=== PATIENT | male | born 1945 | race African-American/Black ===

== ENCOUNTER 2016-12-10 15:43 | Outpatient (CLI) | payer MEDICARE ==
[2016-05-26 18:07] VITALS: BP 154/74
[2016-12-10 17:10] LABS: eGFR (African) 35; eGFR (Non-African) 29
== END 2016-12-10 15:44 ==
LOC: NEPHRO 15:43
PROVIDERS: ATTEND Internal Medicine Nephrology
DX: E11.22 Type 2 diabetes mellitus with diabetic chronic kidney disease (principal); I13.0 Hypertensive heart and chronic kidney disease with heart failure and stage 1 through stage 4 chronic kidney disease, or unspecified chronic kidney disease; N18.9 Chronic kidney disease, unspecified; I50.9 Heart failure, unspecified
CPT/HCPCS: 36415; 80053; 84153; G0463

== ENCOUNTER 2017-01-14 10:50 | Outpatient (CLI) | payer MEDICARE ==
[2016-05-26 18:07] VITALS: BP 154/74
== END 2017-01-14 10:52 ==
LOC: CARD 10:50
PROVIDERS: ATTEND Internal Medicine Cardiovascular Disease
DX: I10 Essential (primary) hypertension (principal)
CPT/HCPCS: G0463

== ENCOUNTER 2017-02-04 13:50 | Outpatient (CLI) | payer MEDICARE ==
[2016-05-26 18:07] VITALS: BP 154/74
== END 2017-02-04 13:52 ==
LOC: NEPHRO 13:50
PROVIDERS: ATTEND Internal Medicine Nephrology
DX: I50.9 Heart failure, unspecified (principal); N18.9 Chronic kidney disease, unspecified
CPT/HCPCS: G0463

== ENCOUNTER 2017-03-25 15:32 | Outpatient (CLI) | payer MEDICARE ==
[2016-05-26 18:07] VITALS: BP 154/74
== END 2017-03-25 15:33 ==
LOC: NEPHRO 15:32
PROVIDERS: ATTEND Internal Medicine Nephrology
DX: N18.9 Chronic kidney disease, unspecified (principal); I10 Essential (primary) hypertension; I50.9 Heart failure, unspecified
CPT/HCPCS: G0463

== ENCOUNTER 2017-04-22 15:06 | Outpatient (CLI) | payer MEDICARE ==
[2016-05-26 18:07] VITALS: BP 154/74
== END 2017-04-22 15:11 | disposition home or self-care (01) ==
LOC: NEPHRO 15:06
PROVIDERS: ATTEND Internal Medicine Nephrology
DX: N18.9 Chronic kidney disease, unspecified (principal); N17.9 Acute kidney failure, unspecified; E11.9 Type 2 diabetes mellitus without complications; I10 Essential (primary) hypertension
CPT/HCPCS: G0463

== ENCOUNTER 2017-07-08 14:25 | Outpatient (CLI) | payer MEDICARE ==
[2016-05-26 18:07] VITALS: BP 154/74
== END 2017-07-08 14:26 ==
LOC: NEPHRO 14:25
PROVIDERS: ATTEND Internal Medicine Nephrology
DX: I50.9 Heart failure, unspecified (principal); N18.9 Chronic kidney disease, unspecified
CPT/HCPCS: G0463

== ENCOUNTER 2017-07-15 10:39 | Outpatient (CLI) | payer MEDICARE ==
[2016-05-26 18:07] VITALS: BP 154/74
== END 2017-07-15 10:40 ==
LOC: CARD 10:39
PROVIDERS: ATTEND Internal Medicine Cardiovascular Disease
DX: I50.9 Heart failure, unspecified (principal); I73.89 Other specified peripheral vascular diseases; E66.9 Obesity, unspecified; E11.22 Type 2 diabetes mellitus with diabetic chronic kidney disease; I12.9 Hypertensive chronic kidney disease with stage 1 through stage 4 chronic kidney disease, or unspecified chronic kidney disease; N18.3 Chronic kidney disease, stage 3 (moderate); G47.30 Sleep apnea, unspecified; E78.5 Hyperlipidemia, unspecified
CPT/HCPCS: G0463

== ENCOUNTER 2017-08-26 14:49 | Outpatient (CLI) | payer MEDICARE ==
[2016-05-26 18:07] VITALS: BP 154/74
== END 2017-08-26 15:00 ==
LOC: NEPHRO 14:49
PROVIDERS: ATTEND Internal Medicine Nephrology
DX: J81.1 Chronic pulmonary edema (principal); J90 Pleural effusion, not elsewhere classified; J98.59 Other diseases of mediastinum, not elsewhere classified
CPT/HCPCS: G0463

== ENCOUNTER 2017-09-02 11:19 | Outpatient (CLI) | payer MEDICARE ==
[2016-05-26 18:07] VITALS: BP 154/74
== END 2017-09-02 11:20 ==
LOC: CARD 11:19
PROVIDERS: ATTEND Internal Medicine Cardiovascular Disease
DX: I50.9 Heart failure, unspecified (principal); I10 Essential (primary) hypertension; I73.9 Peripheral vascular disease, unspecified; E78.5 Hyperlipidemia, unspecified; E11.9 Type 2 diabetes mellitus without complications; E66.9 Obesity, unspecified; N18.3 Chronic kidney disease, stage 3 (moderate); G47.30 Sleep apnea, unspecified
CPT/HCPCS: G0463

== ENCOUNTER 2017-09-23 14:21 | Outpatient (CLI) | payer MEDICARE ==
[2016-05-26 18:07] VITALS: BP 154/74
== END 2017-09-23 14:22 ==
LOC: NEPHRO 14:21
PROVIDERS: ATTEND Internal Medicine Nephrology
DX: N18.9 Chronic kidney disease, unspecified (principal); I50.9 Heart failure, unspecified
CPT/HCPCS: G0463

== ENCOUNTER 2017-11-18 15:07 | Outpatient (CLI) | payer MEDICARE ==
[2016-05-26 18:07] VITALS: BP 154/74
== END 2017-11-18 15:10 ==
LOC: NEPHRO 15:07
PROVIDERS: ATTEND Internal Medicine Nephrology
DX: I50.9 Heart failure, unspecified (principal); N17.9 Acute kidney failure, unspecified; N18.9 Chronic kidney disease, unspecified
CPT/HCPCS: G0463

== ENCOUNTER 2017-12-30 15:33 | Outpatient (CLI) | payer MEDICARE ==
[2016-05-26 18:07] VITALS: BP 154/74
== END 2017-12-30 15:34 ==
LOC: NEPHRO 15:33
PROVIDERS: ATTEND Internal Medicine Nephrology
DX: I50.9 Heart failure, unspecified (principal); N17.9 Acute kidney failure, unspecified; N18.9 Chronic kidney disease, unspecified; I10 Essential (primary) hypertension
CPT/HCPCS: G0463

== ENCOUNTER 2018-01-06 12:12 | Outpatient (CLI) | payer MEDICARE ==
[2016-05-26 18:07] VITALS: BP 154/74
== END 2018-01-06 12:30 ==
LOC: CARD 12:12
PROVIDERS: ATTEND Internal Medicine Cardiovascular Disease
DX: I50.20 Unspecified systolic (congestive) heart failure (principal)

== ENCOUNTER 2018-01-27 14:28 | Outpatient (CLI) | payer MEDICARE ==
[2016-05-26 18:07] VITALS: BP 154/74
== END 2018-01-27 14:30 ==
LOC: NEPHRO 14:28
PROVIDERS: ATTEND Internal Medicine Nephrology
DX: N18.9 Chronic kidney disease, unspecified (principal); N17.9 Acute kidney failure, unspecified; I50.9 Heart failure, unspecified; I10 Essential (primary) hypertension
CPT/HCPCS: G0463

== ENCOUNTER 2018-02-24 11:53 | Outpatient (CLI) | payer MEDICARE ==
[2016-05-26 18:07] VITALS: BP 154/74
== END 2018-02-24 11:54 ==
LOC: CARD 11:53
PROVIDERS: ATTEND Internal Medicine Cardiovascular Disease
DX: I50.9 Heart failure, unspecified (principal); J18.9 Pneumonia, unspecified organism; I10 Essential (primary) hypertension; I73.9 Peripheral vascular disease, unspecified; E78.5 Hyperlipidemia, unspecified; E11.9 Type 2 diabetes mellitus without complications; E66.9 Obesity, unspecified; N18.9 Chronic kidney disease, unspecified; G47.33 Obstructive sleep apnea (adult) (pediatric)
CPT/HCPCS: G0463

== ENCOUNTER 2018-02-27 21:25 | Emergency (ER) | payer MEDICARE ==
--- NOTE | 2018-02-27 22:04 | ED Physician Documentation ---
General Adult - HISTORIAN Historian: patient, spouse - HPI Stated Complaint: Shortness of air Chief Complaint: General Adult Additional Information: tx pneumonia zpack x 1 week no better cough non prod sob fluid retention-rec im lasix at clinic today-worse toite w/ inc sob cough diaphoresis' chronically on o2 for ccopd Onset: days ago (1w) Timing: worse Severity: moderate - ROS CONST: sweating, recent illness, weakness (progressive). denies: fever EYES/ENT: denies: problems with vision CVS/RESP: chest pain, shortness of breath, cough GI/: problems urinating. denies: abdominal pain, vomiting, nausea, diarrhea MS/SKIN/LYMPH: leg swelling, ankle swelling - PAST HX Past History: asthma, COPD, CHF, hypertension Other History: diabetes Type 2 (bph) Surgeries/Procedures: none Allergies/Adverse Reactions: Allergies Allergy/AdvReac Type Severity Reaction Status Date / Time No Known Drug Allergies Allergy Verified 02/27/18 22:40 Home Medications: Ambulatory Orders Medication Instructions Recorded Atenolol 0.5 tab PO q am u2 06/29/13 Imipramine HCl 10 mg PO HS u2 06/29/13 Calcitriol 0.5 mcg PO MTW av 03/16/14 Albuterol Sulfate [Ventolin HFA 2 inhalation IH Q 4-6 HOURS #1 ih 04/20/14 Inhaler] Diltiazem HCl [Taztia Xt] 360 mg PO DAILY av 04/20/14 Fish Oil/Dha/Epa [Fish Oil 1,200 1 each PO DAILY av 04/20/14 mg Fish Oil] Minoxidil [LONITEN] 10 mg PO D 05/25/16 Aspirin [Jd] 81 mg PO HS 02/27/18 Atorvastatin Calcium 80 mg PO HS 02/27/18 Cholecalciferol (Vitamin D3) 1,000 unit PO DAILY 02/27/18 [Vitamin D3] Iron,Carbonyl [Iron Chews] 65 mg PO DAILY 02/27/18 Metolazone [Zaroxolyn] 5 mg PO [id number] 02/27/18 Sennosides [Senna] 2 tab PO BID 02/27/18 Terazosin HCl 2 mg PO HS 02/27/18 - SOCIAL HX Smoking History: non-smoker (for 30 yrs) Alcohol Use: none (but drank heavily in past) Drug Use: none - FAMILY HX Family History: No - VITAL SIGNS Vital Signs: Vital Signs Temp Pulse Resp BP Pulse Ox 154/74 05/26/16 17:15 - REVIEWED ASSESSMENTS Nursing Assessment Reviewed: Yes Vitals Reviewed: Yes ED Results Lab/Radiology - Radiology Radiology Impressions: cxr= rml pneumonia - Orders Orders: ED Orders Category Date Time Status Place IV Lock 1T Care 02/27/18 21:59 Ordered CHEST 2VIEW [RAD] Stat Exams 02/27/18 Ordered BNP [NT-proBNP] Stat Lab 02/27/18 Ordered CBC/PLATELET/DIFF Routine Lab 02/27/18 Ordered CMP Routine Lab 02/27/18 Ordered TROPONIN I (cTnI) Stat Lab 02/27/18 Ordered Ipratropium/Albuterol Sulfate [Duoneb] Med 02/27/18 21:59 Once 3 ml NEB NOW ONE EKG WITH COMPARISON Stat Ther 02/27/18 Ordered General Adult Physical Exam - PHYSICAL EXAM GENERAL APPEARANCE: moderate distress EENT: eye inspection normal NECK: normal inspection RESPIRATORY: wheezes, rales, rhonchi, other (freq cough). No: breath sounds normal CVS: heart sounds normal ABDOMEN: soft, non-tender, distended SKIN: warm/dry, normal color. No: cyanosis, diaphoresis, jaundice EXTREMITIES: non-tender, normal range of motion, edema NEURO: oriented X3, motor nml, sensation nml, mood/affect nml, cognition normal (wears ot carries bottle) Discharge Clincal Impression: RML pneumonia, chronic copd, diabetes mellitus Referrals: Anabella Vilchis FNP [Primary Care Provider] - 2 Days Comments: he will see [facility]pcp 1st of week meds chg to doxy Condition: Good Disposition: 01 HOME, SELF-CARE Decision to Admit: NO Decision Time: 00:01
[2018-02-27 22:55] LABS: MEAN CORPUSCULAR HEMOGLOBIN 27.7 pg (28.0-34.0); MEAN CORPUSCULAR VOLUME 89.1 fl (80.0-100.0)
[2018-02-27 22:57] LABS: BASOPHILS % 0.4 (0.0-1.5); EOSINOPHILS % 1.2 % (0.0-6.8); NEUTROPHILS # 8.1 # k/uL (1.4-7.7)
[2018-02-27] MEDS: IPRATROPIUM/ALBUTEROL SULFATE 3 ML AMPUL.NEB NEB ONE (22:58)
--- NOTE | 2018-02-28 | Diagnostic Imaging Report ---
ANGEL WINTER [facility] [address] [address] Report Submission Date: Feb 27, 2018 10:24:04 PM CDT Patient Study Name: RAJNI LOZA Date: Feb 27, 2018 10:08:38 PM CDT Modality Type: DX Gender: M Description: CHEST : 49 Institution: [facility] Physician: ANGEL WINTER PA and lateral chest CLINICAL HISTORY: Shortness of breath. Nonproductive cough. FINDINGS: Examination of the chest in PA and lateral views with no prior film for comparison demonstrates consolidating infiltrate in the right middle lobe. There is a small effusion blunting the right costophrenic angle. Cardiac silhouette is prominent and the aorta is atherosclerotic. IMPRESSION: Right middle lobe pneumonia. Right pleural effusion. Cardiomegaly and aortic atherosclerosis. Electronically signed on Feb 27, 2018 10:24:04 PM CDT by: Robert GOMEZ
[2018-02-28] MEDS: DOXYCYCLINE MONOHYDRATE 100 MG CAPSULE PO ONE (00:30)
[2018-02-28 00:41] VITALS: BP 145/48
== END 2018-02-28 00:30 | disposition home or self-care (01) ==
LOC: ED 21:25
DX: J18.8 Other pneumonia, unspecified organism (principal); J44.9 Chronic obstructive pulmonary disease, unspecified; E11.9 Type 2 diabetes mellitus without complications
CPT/HCPCS: 71046; 80053; 83880; 84484; 85025; 94640; 99283; S1016

== ENCOUNTER 2018-03-17 14:14 | Outpatient (CLI) | payer MEDICARE | END 2018-03-17 14:16 | LOC: NEPHRO 14:14 | PROVIDERS: ATTEND Internal Medicine Nephrology | DX: N17.9 Acute kidney failure, unspecified (principal); I50.9 Heart failure, unspecified | CPT/HCPCS: G0463 ==

== ENCOUNTER 2018-04-13 02:42 | Emergency (ER) | payer MEDICARE ==
--- NOTE | 2018-04-13 02:59 | ED Physician Documentation ---
General Adult - HISTORIAN Historian: patient - HPI Stated Complaint: shortness of air Chief Complaint: Wheezing Onset: days ago (4) Timing: still present Severity: moderate Further Comments: yes (He states Friday he started to feel increasing Shortness of air. He does wear oxygen at home (usually 3 L ) he had increased his oxygen to 5 L at times to aide in shortness of breath and using his breathing treatments with no improvment. He denies a fever. No sick contacts. He does see Cardiology and Nephro through the [facility] via [facility]. He is taking meds as prescribed per his report.) Last known Well Code/Unknown Code: Unknown - ROS CONST: no problems EYES/ENT: none CVS/RESP: shortness of breath, cough. denies: chest pain GI/: none MS/SKIN/LYMPH: none NEURO/PSYCH: denies: headache, fainting, dizziness - PAST HX Past History: other (HTN, DM, Hyperlipidemia , COPD ) Other History: none Surgeries/Procedures: other (T&A) Immunizations: UTD Allergies/Adverse Reactions: Allergies Allergy/AdvReac Type Severity Reaction Status Date / Time No Known Drug Allergies Allergy Verified 04/13/18 03:15 Home Medications: Ambulatory Orders Medication Instructions Recorded Imipramine HCl 10 mg PO HS u2 06/29/13 Calcitriol 0.5 mcg PO MTW av 03/16/14 Albuterol Sulfate [Ventolin HFA 2 inhalation IH Q 4-6 HOURS #1 ih 04/20/14 Inhaler] Diltiazem HCl [Taztia Xt] 360 mg PO DAILY av 04/20/14 Fish Oil/Dha/Epa [Fish Oil 1,200 1 each PO DAILY av 04/20/14 mg Fish Oil] Minoxidil [LONITEN] 10 mg PO D 05/25/16 Aspirin [Jd] 81 mg PO HS 02/27/18 Atorvastatin Calcium 80 mg PO HS 02/27/18 Cholecalciferol (Vitamin D3) 1,000 unit PO DAILY 02/27/18 [Vitamin D3] Iron,Carbonyl [Iron Chews] 65 mg PO DAILY 02/27/18 Metolazone [Zaroxolyn] 5 mg PO [id number] 02/27/18 Sennosides [Senna] 2 tab PO BID 02/27/18 Terazosin HCl 2 mg PO HS 02/27/18 Albuterol Sulfate [Ventolin HFN] 1 appl INH DIRECTED 04/13/18 Atenolol [Atenolol] 100 mg PO D 04/13/18 Glimepiride [Amaryl] 4 mg PO D 04/13/18 - SOCIAL HX Smoking History: non-smoker Alcohol Use: none Drug Use: none - FAMILY HX Family History: No - VITAL SIGNS Vital Signs: Vital Signs Temp Pulse Resp BP Pulse Ox 145/48 02/28/18 00:30 - REVIEWED ASSESSMENTS Nursing Assessment Reviewed: Yes Vitals Reviewed: Yes Progress - Progress Progress: 0430: Mild improvement after breathing treatment DG [id number]: [facility] notified about admission - [facility] - admission advisor will return call DG [id number]: Dr Aponte Critical Power Technician [facility] accepting DG ED Results Lab/Radiology - Radiology Radiology Impressions: Computed tomography chest without contrast History: Cough and shortness of breath Findings: Transverse chest sections are obtained without contrast revealing diffuse cardiomegaly, small layering right pleural effusion, coronary artery calcifications, scattered calcified granulomas, and numerous enlarged mediastinal and bilateral hilar lymph nodes. Moderate pulmonary edema is observed. There is no evidence of confluent infiltrate. Mild right basilar atelectasis is noted. Impression: 1. Diffuse cardiomegaly, pulmonary edema, and small right pleural effusion consistent with congestive heart failure. 2. Bilateral hilar and mediastinal lymphadenopathy is nonspecific in the setting of pulmonary edema. 3. Old granulomatous disease. 4. Coronary artery calcifications. Electronically signed on Apr 13, 2018 4:39:17 AM CDT by: Chad Guo General Adult Physical Exam - PHYSICAL EXAM GENERAL APPEARANCE: mild distress EENT: eye inspection normal, ENT inspection normal, pharynx normal NECK: normal inspection RESPIRATORY: wheezes, rhonchi, other (mild distress with talking or movement ) CVS: reg rate & rhythm, heart sounds normal ABDOMEN: soft, non-tender, other (distentended - soft ) SKIN: warm/dry, normal color, other (cystic nodules over body and face (he states he has had this for years) ) EXTREMITIES: non-tender, edema (1+ pedal ) NEURO: oriented X3, CN's nml as tested, motor nml, sensation nml, mood/affect nml, cognition normal Discharge Clincal Impression: Chronic kidney disease (CKD) stage G3a/A1, moderately decreased glomerular filtration rate (GFR) between 45-59 mL/min/1.73 square meter and albuminuria creatinine ratio less than 30 mg/g Congestive heart failure (CHF) Qualifiers: Heart failure type: unspecified Heart failure chronicity: chronic Qualified Code(s): I50.9 - Heart failure, unspecified Diabetes type 2, controlled Qualifiers: Diabetes mellitus complication status: without complication Diabetes mellitus halfway insulin use: without regional intermodal truck driver use Qualified Code(s): E11.9 - Type 2 diabetes mellitus without complications Referrals: Anabella Vilchis FNP [Primary Care Provider] - 2 Days Comments: Dr Aponte accepting for transfer [id number] Condition: Fair Disposition: 02 XFER SHT-TRM HOSP Decision to Admit: NO Date of Decison to Admit: 04/13/18 Decision Time: 05:12
[2018-04-13] MEDS ORDERED: IPRATROPIUM/ALBUTEROL SULFATE 3 ML AMPUL.NEB NEB ONE (03:03)
[2018-04-13 03:12] LABS: BASOPHILS % 0.3 (0.0-1.5); EOSINOPHILS % 0.5 % (0.0-6.8); MEAN CORPUSCULAR HEMOGLOBIN 27.2 pg (28.0-34.0); MEAN CORPUSCULAR VOLUME 89.1 fl (80.0-100.0); MONOCYTES % 5.1 % (0.0-11.0)
[2018-04-13] MEDS ORDERED: methylPREDNISolone SOD SUCC 125 MG/2 ML VIAL IVP ONE (04:55)
[2018-04-13] MEDS ORDERED: methylPREDNISolone SOD SUCC 125 MG/2 ML VIAL ONE (04:56)
[2018-04-13 06:04] VITALS: BP 145/67
--- NOTE | 2018-04-13 06:51 | Diagnostic Imaging Report ---
ABIGAIL BARRERA [facility] [address] [facility] [address] [place], [place]. [address] Report Submission Date: Apr 13, 2018 4:39:17 AM CDT Patient Study Name: RAJNI LOZA Date: Apr 13, 2018 4:06:58 AM CDT Modality Type: CT\SR Gender: M Description: CT CHEST W/O CONTRAST : 49 Institution: [facility] Physician: ABIGAIL BARRERA Computed tomography chest without contrast History: Cough and shortness of breath Findings: Transverse chest sections are obtained without contrast revealing diffuse cardiomegaly, small layering right pleural effusion, coronary artery calcifications, scattered calcified granulomas, and numerous enlarged mediastinal and bilateral hilar lymph nodes. Moderate pulmonary edema is observed. There is no evidence of confluent infiltrate. Mild right basilar atelectasis is noted. Impression: 1. Diffuse cardiomegaly, pulmonary edema, and small right pleural effusion consistent with congestive heart failure. 2. Bilateral hilar and mediastinal lymphadenopathy is nonspecific in the setting of pulmonary edema. 3. Old granulomatous disease. 4. Coronary artery calcifications. Electronically signed on Apr 13, 2018 4:39:17 AM CDT by: Chad GOMEZ
--- NOTE | 2018-04-13 06:52 | Diagnostic Imaging Report ---
ABIGAIL BARRERA [facility] [address] [facility] [address] [place], [place]. [address] Report Submission Date: Apr 13, 2018 3:48:18 AM CDT Patient Study Name: RAJNI LOZA Date: Apr 13, 2018 3:24:15 AM CDT Modality Type: DX Gender: M Description: CHEST : 49 Institution: [facility] Physician: ABIGAIL BARRERA PA and lateral chest Clinical history: COUGH, SOA, CHF, DIFFICULTY BREATHING Findings: Examination of the chest in PA and lateral views with comparison to examination February 27, 2018 demonstrates improved aeration right middle lobe with residual infiltrate. There is prominence of the right hilum. CT is recommended to rule out underlying mass or adenopathy. Cardiac silhouette is enlarged. Monitor leads superimpose the chest. Impression: 1. Decreasing right middle lobe infiltrate. 2. Prominence of the right hilum. Recommend CT scan to rule out underlying mass or adenopathy if not previously performed. Electronically signed on Apr 13, 2018 3:48:18 AM CDT by: Robert GOMEZ
[2018-04-13 09:36] LABS: APPEARANCE,URINE CLOUDY (CLEAR); COLOR,URINE YELLOW (YELLOW); OCCULT BLOOD,URINE TRACE-LYSED (NEGATIVE); PH URINE 5.5 (5.0 - 8.0); UROBILINOGEN URINE 0.2 Eu (0.2-1.0)
== END 2018-04-13 05:38 | disposition short-term general hospital (02) ==
LOC: ED 02:42
DX: N18.3 Chronic kidney disease, stage 3 (moderate) (principal); I50.9 Heart failure, unspecified; E11.9 Type 2 diabetes mellitus without complications
CPT/HCPCS: 71046; 71250; 80053; 81002; 83880; 85025; 93005; J2930; 94640; 96374; 99285; S1016

== ENCOUNTER 2018-04-28 15:19 | Outpatient (CLI) | payer MEDICARE | END 2018-04-28 15:20 | LOC: NEPHRO 15:19 | PROVIDERS: ATTEND Internal Medicine Nephrology | DX: I50.9 Heart failure, unspecified (principal); N17.9 Acute kidney failure, unspecified | CPT/HCPCS: G0463 ==

== ENCOUNTER 2018-06-09 15:14 | Outpatient (CLI) | payer MEDICARE | END 2018-06-09 15:15 | LOC: NEPHRO 15:14 | PROVIDERS: ATTEND Internal Medicine Nephrology | DX: I50.9 Heart failure, unspecified (principal); N18.9 Chronic kidney disease, unspecified; N17.9 Acute kidney failure, unspecified | CPT/HCPCS: G0463 ==

== ENCOUNTER 2018-06-23 14:56 | Outpatient (CLI) | payer MEDICARE | END 2018-06-23 14:59 | LOC: NEPHRO 14:56 | PROVIDERS: ATTEND Internal Medicine Nephrology | DX: N17.9 Acute kidney failure, unspecified (principal); E11.9 Type 2 diabetes mellitus without complications; I50.9 Heart failure, unspecified | CPT/HCPCS: G0463 ==

== ENCOUNTER 2018-07-07 15:02 | Outpatient (CLI) | payer MEDICARE | END 2018-07-07 15:03 | LOC: NEPHRO 15:02 | PROVIDERS: ATTEND Internal Medicine Nephrology | DX: E11.9 Type 2 diabetes mellitus without complications (principal); I10 Essential (primary) hypertension; N18.9 Chronic kidney disease, unspecified; N17.9 Acute kidney failure, unspecified | CPT/HCPCS: G0463 ==

== ENCOUNTER 2018-08-04 14:19 | Outpatient (CLI) | payer MEDICARE | END 2018-08-04 14:20 | LOC: NEPHRO 14:19 | PROVIDERS: ATTEND Internal Medicine Nephrology | DX: I50.9 Heart failure, unspecified (principal); N17.9 Acute kidney failure, unspecified | CPT/HCPCS: G0463 ==

== ENCOUNTER 2018-09-01 15:19 | Outpatient (CLI) | payer MEDICARE | END 2018-09-01 15:20 | LOC: NEPHRO 15:19 | PROVIDERS: ATTEND Internal Medicine Nephrology | DX: I50.9 Heart failure, unspecified (principal); I27.20 Pulmonary hypertension, unspecified; N17.9 Acute kidney failure, unspecified; N18.9 Chronic kidney disease, unspecified | CPT/HCPCS: G0463 ==

== ENCOUNTER 2018-09-29 14:01 | Outpatient (CLI) | payer MEDICARE | END 2018-09-29 14:02 | LOC: NEPHRO 14:01 | PROVIDERS: ATTEND Internal Medicine Nephrology | DX: I12.9 Hypertensive chronic kidney disease with stage 1 through stage 4 chronic kidney disease, or unspecified chronic kidney disease (principal); N18.3 Chronic kidney disease, stage 3 (moderate); E11.9 Type 2 diabetes mellitus without complications; I25.10 Atherosclerotic heart disease of native coronary artery without angina pectoris; E78.5 Hyperlipidemia, unspecified; I50.30 Unspecified diastolic (congestive) heart failure; N17.9 Acute kidney failure, unspecified; Z79.84 Long term (current) use of oral hypoglycemic drugs | CPT/HCPCS: G0463 ==

== ENCOUNTER 2018-10-20 13:53 | Outpatient (CLI) | payer MEDICARE | END 2018-10-20 14:30 | LOC: NEPHRO 13:53 | PROVIDERS: ATTEND Internal Medicine Nephrology | DX: I12.9 Hypertensive chronic kidney disease with stage 1 through stage 4 chronic kidney disease, or unspecified chronic kidney disease (principal); E11.22 Type 2 diabetes mellitus with diabetic chronic kidney disease; N18.3 Chronic kidney disease, stage 3 (moderate); N17.9 Acute kidney failure, unspecified; I25.10 Atherosclerotic heart disease of native coronary artery without angina pectoris; E78.5 Hyperlipidemia, unspecified; I73.9 Peripheral vascular disease, unspecified; N28.1 Cyst of kidney, acquired | CPT/HCPCS: G0463 ==

== ENCOUNTER 2018-12-22 12:33 | Outpatient (CLI) | payer MEDICARE | END 2018-12-22 12:35 | LOC: NEPHRO 12:33 | PROVIDERS: ATTEND Internal Medicine Nephrology | DX: I12.9 Hypertensive chronic kidney disease with stage 1 through stage 4 chronic kidney disease, or unspecified chronic kidney disease (principal); E11.22 Type 2 diabetes mellitus with diabetic chronic kidney disease; N18.3 Chronic kidney disease, stage 3 (moderate); I25.10 Atherosclerotic heart disease of native coronary artery without angina pectoris; E78.5 Hyperlipidemia, unspecified | CPT/HCPCS: G0463 ==

== ENCOUNTER 2019-02-02 14:59 | Outpatient (CLI) | payer MEDICARE | END 2019-02-02 15:01 | LOC: NEPHRO 14:59 | PROVIDERS: ATTEND Internal Medicine Nephrology | DX: I12.9 Hypertensive chronic kidney disease with stage 1 through stage 4 chronic kidney disease, or unspecified chronic kidney disease (principal); E11.22 Type 2 diabetes mellitus with diabetic chronic kidney disease; N18.3 Chronic kidney disease, stage 3 (moderate); N17.9 Acute kidney failure, unspecified; I25.10 Atherosclerotic heart disease of native coronary artery without angina pectoris | CPT/HCPCS: G0463 ==

== ENCOUNTER 2019-03-09 14:48 | Outpatient (CLI) | payer MEDICARE | END 2019-03-09 14:50 | LOC: NEPHRO 14:48 | PROVIDERS: ATTEND Internal Medicine Nephrology | DX: I12.9 Hypertensive chronic kidney disease with stage 1 through stage 4 chronic kidney disease, or unspecified chronic kidney disease (principal); E11.22 Type 2 diabetes mellitus with diabetic chronic kidney disease; N18.3 Chronic kidney disease, stage 3 (moderate); N17.9 Acute kidney failure, unspecified; I50.9 Heart failure, unspecified; Z79.84 Long term (current) use of oral hypoglycemic drugs | CPT/HCPCS: G0463 ==

== ENCOUNTER 2019-05-18 13:53 | Outpatient (CLI) | payer MEDICARE | END 2019-05-18 14:13 | LOC: NEPHRO 13:53 | PROVIDERS: ATTEND Internal Medicine Nephrology | DX: I11.9 Hypertensive heart disease without heart failure (principal); N17.9 Acute kidney failure, unspecified; E21.3 Hyperparathyroidism, unspecified; I12.9 Hypertensive chronic kidney disease with stage 1 through stage 4 chronic kidney disease, or unspecified chronic kidney disease; N18.3 Chronic kidney disease, stage 3 (moderate); D63.1 Anemia in chronic kidney disease | CPT/HCPCS: 99214 ==

== ENCOUNTER 2019-07-20 15:28 | Outpatient (CLI) | payer MEDICARE | END 2019-07-20 16:00 | LOC: NEPHRO 15:28 | PROVIDERS: ATTEND Internal Medicine Nephrology | DX: I13.0 Hypertensive heart and chronic kidney disease with heart failure and stage 1 through stage 4 chronic kidney disease, or unspecified chronic kidney disease (principal); I50.9 Heart failure, unspecified; N18.9 Chronic kidney disease, unspecified; D63.1 Anemia in chronic kidney disease; N25.81 Secondary hyperparathyroidism of renal origin | CPT/HCPCS: 99214; G0463 ==

== ENCOUNTER 2019-09-07 14:39 | Outpatient (CLI) | payer MEDICARE | END 2019-09-07 15:10 | LOC: NEPHRO 14:39 | PROVIDERS: ATTEND Internal Medicine Nephrology | DX: I12.9 Hypertensive chronic kidney disease with stage 1 through stage 4 chronic kidney disease, or unspecified chronic kidney disease (principal); E11.22 Type 2 diabetes mellitus with diabetic chronic kidney disease; N18.3 Chronic kidney disease, stage 3 (moderate); I25.10 Atherosclerotic heart disease of native coronary artery without angina pectoris; E78.5 Hyperlipidemia, unspecified; G47.30 Sleep apnea, unspecified | CPT/HCPCS: 99213; G0463 ==

== ENCOUNTER 2019-11-09 14:41 | Outpatient (CLI) | payer MEDICARE | END 2019-11-09 15:14 | LOC: NEPHRO 14:41 | PROVIDERS: ATTEND Internal Medicine Nephrology | DX: N17.9 Acute kidney failure, unspecified (principal); I27.20 Pulmonary hypertension, unspecified; N18.3 Chronic kidney disease, stage 3 (moderate); I50.9 Heart failure, unspecified | CPT/HCPCS: G0463 ==